=== PATIENT | male | born 1990 | race Hispanic/Latino ===

== ENCOUNTER 2017-02-23 14:45 | Inpatient (IN) | payer OTHER ==
[~2017-02-23] VITALS: Ht 180.3 cm; Wt 114.0 kg
[2017-02-23] MEDS ORDERED: ONDANSETRON HCL 4 MG/2 ML VIAL ONE (15:05)
[2017-02-23] MEDS ORDERED: SODIUM CHLORIDE 0.9% 1000ML 1,000 ML IV ONE (15:06)
[2017-02-23 15:11] LABS: BASOPHILS % (AUTO) 0.1 % (0.0-5.0); HEMATOCRIT 50.3 % (42-54); LYMPHOCYTES % (AUTO) 3.2 % (21.0-51.0); MEAN CORPUSCULAR HEMOGLOBIN 30.9 pg (27.0-33.0); MEAN CORPUSCULAR VOLUME 90.8 fL (79-99); MONOCYTES % (AUTO) 5.9 % (3.0-13.0); NEUTROPHILS % (AUTO) 90.8 % (40.0-77.0); PLATELET COUNT (AUTO) 242 K/uL (130-400); RED BLOOD CELL COUNT(AUTO) 5.54 MIL/uL (4.50-6.20); RED CELL DISTRIBUTION WIDTH 13.3 % (11.0-15.5); WHITE BLOOD COUNT (AUTO) 19.9 K/uL (4.8-10.8)
[2017-02-23 15:21] LABS: CREATININE 1.1 mg/dL (0.5-1.5); POTASSIUM 3.6 mmol/L (3.5-5.1)
[2017-02-23 15:26] LABS: ALBUMIN 4.4 g/dL (3.5-5.0)
[2017-02-23 15:27] LABS: BILIRUBIN,TOTAL 0.9 mg/dL (0.2-1.0); TOTAL PROTEIN, SERUM 8.4 g/dL (6.0-8.3)
[2017-02-23 15:44] LABS: APPEARANCE,URINE Clear (CLEAR); BILIRUBIN,URINE Small (NEGATIVE); COLOR,URINE Dark Yellow (YELLOW); GLUCOSE, URINE (UA) Negative (NEGATIVE); KETONES,URINE Negative (NEGATIVE); LEUKOCYTE ESTERASE ,URINE Negative (NEGATIVE); NITRATE,URINE Negative (NEGATIVE); OCCULT BLOOD,URINE Negative (NEGATIVE); PH,URINE 5.5 (5.0-8.0); PROTEIN,URINE POS 2+ (NEGATIVE)
[2017-02-23] MEDS ORDERED: MORPHINE SULFATE 4 MG/1ML SYG ONE ×2 (15:51→16:52)
[2017-02-23 15:52] LABS: BACTERIA,URINE None Seen /HPF (None Seen); MUCUS,URINE Many LPF (None Seen); RBC,URINE None Seen /HPF (0-1); RENAL EPITHELIAL CELLS,URINE Few /LPF (None Seen); TRANSITIONAL EPI CELLS,URINE Few /LPF (None Seen); WBC,URINE 0-1 /HPF (0-1)
[2017-02-23] MEDS ORDERED: ZOSYN 3.375GM+NS 50ML 50 ML IV ONE (16:09)
[2017-02-24] MEDS: LACTATED RINGERS 1000ML 1,000 ML IV SCH ×4 (00:41→21:19)
[2017-02-24] MEDS ORDERED: LACTATED RINGERS 1000ML 1,000 ML IV ONE (00:41)
[2017-02-24] MEDS ORDERED: HYDRALAZINE HCL 20 MG/ML VIAL IV PRN (00:45)
[2017-02-24] MEDS ORDERED: ONDANSETRON HCL 4 MG/2 ML VIAL IV PRN (00:45)
[2017-02-24] MEDS ORDERED: MORPHINE SULFATE 4 MG/1ML SYG ONE (01:26)
[2017-02-24 02:40] VITALS: BP 140/81
[2017-02-24 08:00] VITALS: BP 145/93
[2017-02-24] MEDS: FAMOTIDINE/PF 20 MG/2 ML VIAL IV SCH ×2 (08:20→21:15)
[2017-02-24] MEDS: HYDROMORPHONE 1 MG/1 ML AMP IV PRN (08:21)
[2017-02-24] MEDS: ENOXAPARIN SODIUM 40 MG/0.4 ML SYRINGE SQ SCH (08:21)
[2017-02-24 09:17] LABS: HEMATOCRIT 45.1 % (42-54); MEAN CORPUSCULAR HEMOGLOBIN 30.7 pg (27.0-33.0); MEAN CORPUSCULAR VOLUME 90.3 fL (79-99); PLATELET COUNT (AUTO) 198 K/uL (130-400); RED CELL DISTRIBUTION WIDTH 13.5 % (11.0-15.5); WHITE BLOOD COUNT (AUTO) 14.1 K/uL (4.8-10.8)
[2017-02-24 09:30] LABS: CREATININE 0.7 mg/dL (0.5-1.5); POTASSIUM 3.2 mmol/L (3.5-5.1)
[2017-02-24 11:40] VITALS: BP 150/91
[2017-02-24] MEDS: MORPHINE SULFATE 4 MG/1ML SYG IV PRN ×2 (12:47→18:36)
[2017-02-24 16:00] VITALS: BP 143/77
[2017-02-24 19:00] VITALS: BP 141/86
[2017-02-24] MEDS ORDERED: FLU VACC QS2017-18 36MOS UP/PF 60 MCG/0.5 ML ML IM SCH (19:00)
[2017-02-25] VITALS: BP 141/85
[2017-02-25] MEDS: MORPHINE SULFATE 4 MG/1ML SYG IV PRN ×2 (00:38→13:30)
[2017-02-25] MEDS: LACTATED RINGERS 1000ML 1,000 ML IV SCH ×4 (03:51→21:15)
[2017-02-25 04:00] VITALS: BP 141/83
[2017-02-25] MEDS: HYDROMORPHONE 1 MG/1 ML AMP IV PRN (04:02)
[2017-02-25 07:00] VITALS: BP 138/80
[2017-02-25 07:18] LABS: HEMATOCRIT 40.6 % (42-54); MEAN CORPUSCULAR HEMOGLOBIN 31.3 pg (27.0-33.0); MEAN CORPUSCULAR HGB CONC 34.6 g/dL (32.0-36.0); MEAN CORPUSCULAR VOLUME 90.4 fL (79-99); PLATELET COUNT (AUTO) 181 K/uL (130-400); RED BLOOD CELL COUNT(AUTO) 4.49 MIL/uL (4.50-6.20); RED CELL DISTRIBUTION WIDTH 13.3 % (11.0-15.5); WHITE BLOOD COUNT (AUTO) 15.3 K/uL (4.8-10.8)
[2017-02-25 07:51] LABS: ALBUMIN 2.9 g/dL (3.5-5.0); BILIRUBIN,TOTAL 1.5 mg/dL (0.2-1.0); CREATININE 0.7 mg/dL (0.5-1.5); POTASSIUM 3.3 mmol/L (3.5-5.1); TOTAL PROTEIN, SERUM 6.5 g/dL (6.0-8.3)
[2017-02-25] MEDS: FAMOTIDINE/PF 20 MG/2 ML VIAL IV SCH ×2 (10:11→21:15)
[2017-02-25] MEDS: ENOXAPARIN SODIUM 40 MG/0.4 ML SYRINGE SQ SCH (10:12)
[2017-02-25 11:00] VITALS: BP 141/74
[2017-02-25 16:00] VITALS: BP 141/85
[2017-02-25 19:00] VITALS: BP 139/83
[2017-02-26] VITALS (7 sets, daily range): BP systolic 137–152; BP diastolic 80–89
[2017-02-26] MEDS: MORPHINE SULFATE 4 MG/1ML SYG IV PRN ×2 (00:21→22:58)
[2017-02-26] MEDS: LACTATED RINGERS 1000ML 1,000 ML IV SCH ×3 (04:12→18:41)
[2017-02-26 04:53] LABS: AMYLASE 221 U/L (25-115); LIPASE 1254 U/L (114-286)
[2017-02-26] MEDS: FAMOTIDINE/PF 20 MG/2 ML VIAL IV SCH ×2 (08:53→21:03)
[2017-02-26] MEDS: ENOXAPARIN SODIUM 40 MG/0.4 ML SYRINGE SQ SCH (08:53)
[2017-02-26] MEDS ORDERED: ACETAMINOPHEN 325 MG TAB PO PRN (16:00)
[2017-02-27] MEDS: LACTATED RINGERS 1000ML 1,000 ML IV SCH ×3 (01:45→14:53)
[2017-02-27 04:00] VITALS: BP 149/90
[2017-02-27 04:32] LABS: HEMATOCRIT 35.7 % (42-54); MEAN CORPUSCULAR HEMOGLOBIN 31.2 pg (27.0-33.0); MEAN CORPUSCULAR HGB CONC 34.7 g/dL (32.0-36.0); MEAN CORPUSCULAR VOLUME 89.9 fL (79-99); PLATELET COUNT (AUTO) 229 K/uL (130-400); RED BLOOD CELL COUNT(AUTO) 3.98 MIL/uL (4.50-6.20); RED CELL DISTRIBUTION WIDTH 13.1 % (11.0-15.5); WHITE BLOOD COUNT (AUTO) 15.4 K/uL (4.8-10.8)
[2017-02-27 04:41] LABS: BAND NEUTROPHILS % (MANUAL) 1 % (0-2); LYMPHOCYTES % (MANUAL) 10 % (22-44); MONOCYTES % (MANUAL) 6 % (2-9); SEGMENTED NEUTROPHILS % 83 % (40-70)
[2017-02-27 04:42] LABS: CREATININE 0.7 mg/dL (0.5-1.5); MAN.DIFF COMMENT-IMPRESSION MANUAL DIFFERENTIAL; POTASSIUM 3.4 mmol/L (3.5-5.1)
[2017-02-27 04:43] LABS: PLATELET MORPHOLOGY COMMENT ADEQUATE
[2017-02-27 08:12] VITALS: BP 146/94
[2017-02-27] MEDS: ENOXAPARIN SODIUM 40 MG/0.4 ML SYRINGE SQ SCH (09:00)
[2017-02-27] MEDS: FAMOTIDINE/PF 20 MG/2 ML VIAL IV SCH (09:01)
[2017-02-27 11:25] VITALS: BP 146/90
[2017-02-27 16:11] VITALS: BP 136/90
== END 2017-02-27 19:37 | disposition home or self-care (01) | DRG 439 ==
LOC: EDH 14:45 → EDHIP 02-24 00:41 → 3DH 02-24 02:06
PROVIDERS: ADMIT Family Medicine; ATTEND Family Medicine
PROC: 3E0234Z Introduction of Serum, Toxoid and Vaccine into Muscle, Percutaneous Approach (ICD-10-PCS; principal; 2017-02-24)
DX: K85.20 Alcohol induced acute pancreatitis without necrosis or infection (principal); R65.10 Systemic inflammatory response syndrome (SIRS) of non-infectious origin without acute organ dysfunction; D72.828 Other elevated white blood cell count; E66.9 Obesity, unspecified; Z68.35 Body mass index [BMI] 35.0-35.9, adult; Z23 Encounter for immunization; Z82.49 Family history of ischemic heart disease and other diseases of the circulatory system; Z83.3 Family history of diabetes mellitus
CPT/HCPCS: 36415; 74176; 76705; 80048; 80053; 80061; 81001; 82150; 83690; 85025; 85027; G0008; J1170; J1650; J2270; J2405; J2543; J3490; J7030; J7120; Q2038